=== PATIENT | female | born 1970 | race Caucasian/White ===

== ENCOUNTER 2020-10-08 17:50 | Emergency (ER) | payer MEDICAID, SELFPAY ==
--- NOTE | ~2020-10-08 | XR_ITS ---
EXAMINATION: XR shoulder RT min 2V INDICATION: Right shoulder pain TECHNIQUE: Four views of the right shoulder are submitted. COMPARISON: None FINDINGS: Normal alignment. No fracture. Glenohumeral and acromioclavicular joint spaces are normal. Soft tissues are unremarkable. Surgical changes are noted in the lower cervical spine. IMPRESSION: 1. No acute osseous abnormality. Reviewed, dictated and finalized at location A. [employer]
[2020-10-08 18:08] VITALS: BP 147/77; PULSE 88; RESP 20; TEMP 36.8; O2SAT 100
--- NOTE | 2020-10-08 18:39 | ED.UPPEXIN ---
HPI - Extremity Injury (Upper) General Chief Complaint: Extremity Injury, Upper Stated Complaint: Extremity Injury, Upper Source: patient Mode of arrival: ambulatory Limitations: no limitations History of Present Illness HPI narrative: Evelyne Dejesus is a 50 yo female with a PMH of GERD to express care after fall on Friday to prevent extension of left knee roll to right and hit right shoulder on driveway; patient unable to lift arm above head or raise to 90 degree angle without pain, but have ability to lift tears with tries to force movement. No history of AC joint injury or rotator cuff tear on right. Related Data Home Medications Medication Instructions Recorded Confirmed cholecalciferol (vitamin D3) 50 mcg PO DAILY 10/08/20 10/08/20 [Vitamin D3] esomeprazole magnesium [Nexium] 40 mg PO DAILY 10/08/20 10/08/20 Allergies Allergy/AdvReac Type Severity Reaction Status Date / Time No Known Allergies Allergy Verified 10/08/20 18:30 Review of Systems Review of Systems: Narrative: CONSTITUTIONAL: Denies fever, chills, sweats. EYES: Denies visual changes, redness, discharge. ENT: Denies rhinorrhea, congestion, sore throat, otalgia. CARDIOVASCULAR: Denies chest pain, palpitations, edema. RESPIRATORY: Denies dyspnea, wheezing, cough GASTROINTESTINAL: Denies abdominal pain, nausea, vomiting, diarrhea. GENITOURINARY: Denies dysuria, hematuria, abnormal discharge SKIN: Denies rash or itching. NEUROLOGIC: Denies numbness, or focal weakness. PSYCHIATRIC: Denies anxiety or depression. right shoulder pain-unable to lift arm on own PMFSH Past Medical History Medical History GERD (gastroesophageal reflux disease) Family History Family History Other Diabetes mellitus Hypertension Social History Social History (Updated 10/08/20 @ 18:51 by Jamilah Richardson CNP) Smoking status: Never smoker Alcohol intake: never Comments At time of signature, I agree with nursing past medical, surgical, social and family history. There is no relevant family history pertinent to the presenting complaint. BP elevated - pt to follow up with pcp Exam Narrative: Exam Narrative: GENERAL: This is a well-nourished, well-developed patient, in moderate distress. HEAD: normocephalic, atraumatic. EYES: Sclera clear/white. Vision is grossly intact. EARS: External ears normal, Hearing grossly intact. NOSE: External nose normal without nasal discharge, nares without redness, no rhinorrhea. THROAT: Mucous membranes moist, NECK: Neck supple, non-tender CARDIOVASCULAR: Regular rate and rhythm without murmurs, gallops, or rubs. RESPIRATORY: Clear to auscultation. Breath sounds equal bilaterally. No wheezes, rales, or rhonchi. GASTROINTESTINAL: Abdomen soft, SKIN: warm, intact with no suspicious lesions or rash, good texture and turgor. NEURO: awake, alert, and oriented to person, place and time. There were no obvious focal neurologic abnormalities. Steady gait EXTREMITIES: Right shoulder pain is unable to lift arm out of arm beyond 90 degrees without exquisite pain states pain increases to greater than 10 when forces arm overhead, has point tenderness at the AC joint but extends above the joint and more anterior BACK: Nontender without deformity Course Course Emergency Course: Fell on a car in the driveway on Friday and ended up hitting right shoulder; unable to lift arm overhead without pain X-ray of right shoulder-results negative for osseous abnormality; plan is to place in sling and started on muscle relaxants Patient should be started on shoulder exercises and if not improved follow-up with orthopedist Vital Signs Vital signs: Vital Signs Temperature 98.2 F 10/08/20 18:08 Pulse Rate 88 10/08/20 18:08 Respiratory Rate 20 10/08/20 18:08 Blood Pressure 147/77 H 10/08/20 18:08 Pulse Oximetry 100 10/08/20 1
== END 2020-10-08 19:15 | disposition home or self-care (01) ==
PROVIDERS: Emergency Provider Nurse Practitioner; PCP Internal Medicine
DX: S49.91XA Unspecified injury of right shoulder and upper arm, initial encounter (principal); W19.XXXA Unspecified fall, initial encounter; K21.9 Gastro-esophageal reflux disease without esophagitis
CPT/HCPCS: 73030; 99213; A4565; G0463

== ENCOUNTER 2021-08-12 14:28 | Emergency (ER) | payer BC, MEDICAID, SELFPAY ==
--- NOTE | 2021-08-12 14:34 | ED.UPPEXIN ---
HPI - Extremity Injury (Upper) General Stated Complaint: Fall Injury/ Shoulder Time Seen by Provider: 08/12/21 14:34 Source: patient and RN notes reviewed Related Data Home Medications Medication Instructions Recorded Confirmed cholecalciferol (vitamin D3) 50 mcg PO DAILY 10/08/20 10/08/20 [Vitamin D3] esomeprazole magnesium [Nexium] 40 mg PO DAILY 10/08/20 10/08/20 Allergies Allergy/AdvReac Type Severity Reaction Status Date / Time No Known Allergies Allergy Verified 10/08/20 18:30 Review of Systems Review of Systems: CONSTITUTIONAL: Denies fever, chills, or sweats. EYES: Denies visual changes, redness, or discharge. ENT: Denies rhinorrhea, congestion, sore throat, or otalgia. CARDIOVASCULAR: Denies chest pain, palpitations, or edema. RESPIRATORY: Denies cough or dyspnea. GASTROINTESTINAL: Denies abdominal pain, nausea, vomiting, or diarrhea. GENITOURINARY: Denies dysuria or hematuria. SKIN: Denies rash or itching. MUSCULOSKELETAL: Denies back pain, joint pain, or myalgia. NEUROLOGIC: Denies headache, numbness, or weakness. PSYCHIATRIC: Denies anxiety or depression. All other systems reviewed are negative, except as documented in HPI. [facility] Past Medical History Medical History GERD (gastroesophageal reflux disease) Family History Family History Other Diabetes mellitus Hypertension Social History Social History (Updated 10/08/20 @ 18:51 by Jamilah Richardson CNP) Smoking status: Never smoker Alcohol intake: never Comments At the time of my signature, I reviewed and agree with the nursing past medical, surgical, social, and family history. There is no relevant family history pertinent to the patient complaint. Exam Narrative: GENERAL: This is a well-nourished, well-developed patient, in no apparent distress. HEAD: normocephalic, atraumatic. EYES: PERRL. Sclera clear/white. Vision is grossly intact. EARS: External ears normal, auditory canals clear and without drainage, TMs normal without perforation. Hearing grossly intact. NOSE: External nose normal with no obvious nasal discharge, nares without redness, no rhinorrhea. THROAT: Mucous membranes moist, posterior pharynx clear. NECK: Neck supple, non-tender without lymphadenopathy, masses or thyromegaly. CARDIOVASCULAR: Regular rate and rhythm without murmurs, gallops, or rubs. RESPIRATORY: Clear to auscultation. Breath sounds equal bilaterally. No wheezes, rales, or rhonchi. GASTROINTESTINAL: Abdomen soft, non-tender, nondistended. Bowel sounds are active. No hepato-splenomegaly, or palpable masses. No guarding. SKIN: warm, intact with no suspicious lesions or rash, good texture and turgor. NEURO: awake, alert, and oriented to person, place and time. There were no obvious focal neurologic abnormalities. EXTREMITIES: No clubbing, cyanosis, or edema. No joint tenderness, effusion, or edema noted. No calf tenderness. Negative Homans sign bilaterally. BACK: Nontender without deformity or crepitance. No flank tenderness. MDM - Extremity Injury (Upper) Differential Diagnosis Differential diagnosis: Likely sprain and strain of wrist, fracture of wrist, finger sprain, dislocation of finger, Colles' fracture, fracture of hand, dislocation of shoulder and fracture of clavicle Critical Care Time Critical Care Time Critical Care Time: No Discharge Plan Discharge Prescriptions: No Action esomeprazole magnesium [Nexium] 40 mg Capsule,Delayed Release(Dr/Ec) 40 mg PO DAILY RF: 0 cholecalciferol (vitamin D3) [Vitamin D3] 50 mcg (2,000 unit) Tablet 50 mcg PO DAILY RF: 0 baclofen 10 mg tablet 10 mg PO TID Qty: 20 RF: 0
--- NOTE | 2021-08-12 14:47 | PC.NURSE ---
1430 following registration, prior to triage, pt informed staff she needs pain meds now for shoulder pain/injury. this nurse informed pt provider would see, assess, and evaluate her, and could order tylenol/ibuprofen/toradol/xray as needed. stated she does not want to be seen here and would go directly to er because she needs stronger pain meds, especially before xray. observed pt tearful/anxious, calming when talking, holding right arm across abdomen. pt left accompanied by [employer] truck driver. noted right radial pulse strong.
== END 2021-08-12 14:34 | disposition left against medical advice (07) ==
PROVIDERS: Emergency Provider Internal Medicine Hematology & Oncology
DX: Z53.21 Procedure and treatment not carried out due to patient leaving prior to being seen by health care provider (principal)
CPT/HCPCS: 99199